=== PATIENT | female | born 1985 | race Caucasian/White ===

== ENCOUNTER 2016-03-13 19:57 | Emergency (ER) | payer SELFPAY ==
[~2016-03-13] VITALS: Ht 162.6 cm; Wt 66.0 kg
[2016-03-13 21:15] VITALS: Ht 162.6 cm; Wt 66.0 kg
[2016-03-13] MEDS ORDERED: IBUP-1542 PO (21:31)
[2016-03-13] MEDS ORDERED: HYDR-906 PO (21:32)
--- NOTE | 2016-03-13 21:37 | ERD ---
ER Documentation Chief Complaint Date/Time DATE: 03/13/16 TIME: 21:34 Chief Complaint left breast pain x 4 days HPI 30-year-old female presents here in emergency department for complaint of left breast pain started 4 days ago. Patient feels a mass in the left breast area. Patient described the pain as throbbing pain, 6/10 scale, now better or worse with anything. Patient did not have any trauma and affected area. Patient denies any nipple discharge. Patient denies any fever or chills patient denies any redness or swelling. Patient did not take any medications for pain. ROS All systems reviewed and are negative except as per history of present illness. Medications Home Meds Active Scripts Hydrocodone/Acetaminophen (Holmes 5-325 Tablet) 1 Each Tablet, 1 TAB PO Q6H Y for SEVERE PAIN LEVEL 7-10, #20 TAB Prov:HIRA FRAUSTO METAPHYSICIAN 03/13/16 Ibuprofen* (Motrin*) 600 Mg Tab, 600 MG PO Q6H Y for PAIN AND OR ELEVATED TEMP, #30 TAB Prov:HIRA FRAUSTO METAPHYSICIAN 03/13/16 Allergies Allergies: Coded Allergies: No Known Drug Allergies (Verified Allergy, Unknown, 03/13/16) PMhx/Soc Medical and Surgical Hx: pt denies Medical Hx, pt denies Surgical Hx FmHx Family History: No coronary disease, No diabetes, No other Physical Exam Vitals Vital Signs Date Time Temp Pulse Resp B/P Pulse Ox O2 Delivery O2 Flow Rate FiO2 03/13/16 21:15 98.5 81 20 122/65 99 Physical Exam GENERAL: The patient is well developed and appropriate for usual state of health, in no apparent distress. CHEST: Clear to auscultation bilaterally. There are no rales, wheezes or rhonchi. Noted left breast tenderness, noted 2 cm diameter palpable mass surrounding the nipple area, no deformity noted, no redness noted, no nipple discharge noted. Noted right breast is normal, no palpable mass, nontender on palpation. No redness noted. No fluctuance noted. HEART: Regular rate and rhythm. No murmurs, clicks, rubs or gallops. No S3 or S4. ABDOMEN: Soft, nontender and nondistended. Good bowel sounds. No rebound or guarding. No gross peritonitis. No gross organomegaly or masses. No Addison sign or McBurney point tenderness. BACK: No midline or flank tenderness. EXTREMITIES: Equal pulses bilaterally. There is no peripheral clubbing, cyanosis or edema. No focal swelling or erythema. Full range of motion. Grossly neurovascularly intact. NEURO: Alert and oriented. Cranial nerves 2-12 intact. Motor strength in all 4 extremities with 5/5 strength. Sensation grossly intact. Normal speech and gait. SKIN: There is no apparent rash or petechia. The skin is warm and dry. HEMATOLOGIC AND LYMPHATIC: There is no evidence of excessive bruising or lymphedema. No gross cervical, axillary, or inguinal lymphadenopathy. Procedures/MDM Medical decision making: Patient's left breast pain is nonspecific at this time , possibly contusion, possible musculoskeletal pain, is accompanying her mass but nonspecific at this time, patient was advised to see gynecology specialist/ breast specialist for possible mammogram or ultrasound for further evaluation of the left breast. At this time, no symptoms of any infection, symptoms of mastitis. No symptoms of any abscess. Patient was given ibuprofen for mild to moderate pain, Holmes for severe pain, is advised to apply ice on affected area, follow-up and see primary care doctor possibly be referred to gynecology specialist/breast specialist for further evaluation of symptoms. Departure Diagnosis: Primary Impression: Breast pain Condition: Stable Patient Instructions: Breast Self-Exam (BSE), Breast Mass, Uncertain Cause Referrals: CUSTOM STUDIO COORDIN[place] [address] [address] [place], [place] [id number] OFFICE FAX DR.ABUSLEME [facility] [address] [place] [place] [id number] [facility] [address] [place] [place] [phone] [address] [facility] [address] [facility] [address] [place] [id number] [address] [address] [place], [place] [phone] [facility] [address] [place], [place] [address] [address] [facility] [id number] - MARTINA MARTINEZ [address], [facility] [address] [address] FONSECA, JOSÉ [address] [facility]. [address], [facility] [address] [address] ALTMAN, FARID [address] [place], [place] [id number] [facility] () Usted se gabriel hecho un examen mdico de control que le indica que no est en darlene condicin que requiera tratamiento urgente en el Departamento de Emergencia. Un estudio ms profundo y el tratamiento de martinez condicin pueden esperar sin ningn riesgo hasta que usted sea atendida/o en el consultorio de martinez mdico o darlene cl ty. Es responsabilidad suya arreglar darlene curt para el seguimiento del neda. MANEJO DE CONDICIONES NO URGENTES EN EL FUTURO 1) Si usted tiene un mdico de atencin primaria: Usted debera llamar a martinez mdico de atencin primaria antes de venir al departamento de emergencia. Despus de las horas de consultorio, martinez doctor o martinez asociado/a est disponible por telfono. El mdico o enfermero de juliette en el servicio telefnico puede asesorarle por bethel medio para atender el problema, o neda contrario se puede programar darlene curt. 2) Si usted no tiene un mdico de atencin primaria: Llame al mdico o clnica de referencia que aparece abajo ramya las horas de consultorio para hacer darlene curt para que le vean. CLINICAS: [facility] [phone] [facility] [phone] [facility] [phone] [facility] [phone] [facility] [phone] 68[address] [facility]. [phone] [facility] () Usted se gabriel hecho un examen mdico de control que le indica que no est en darlene condicin que requiera tratamiento urgente en el Departamento de Emergencia. Un estudio ms profundo y el tratamiento de martinez condicin pueden esperar sin ningn riesgo hasta que usted sea atendida/o en el consultorio de martinez mdico o darlene cl ty. Es responsabilidad suya arreglar darlene curt para el seguimiento del neda. MANEJO DE CONDICIONES NO URGENTES EN EL FUTURO 1) Si usted tiene un mdico de atencin primaria: Usted debera llamar a martinez mdico de atencin primaria antes de venir al departamento de emergencia. Despus de las horas de consultorio, martinez doctor o martinez asociado/a est disponible por telfono. El mdico o enfermero de juliette en el servicio telefnico puede asesorarle por bethel medio para atender el problema, o neda contrario se puede programar darlene curt. 2) Si usted no tiene un mdico de atencin primaria: Llame al mdico o condado institucions de referencia que aparece abajo ramya las horas de consultorio para hacer darlene crut para que le vean. SI USTED NO PUEDE PAGAR PARA RENARD UN MEDICO puede ir a: [facility] [address] [place] [address] [facility] [address] [place] [address] [facility] [address] [place] [id number] [facility] [address] [place], [place] [phone] HIRA FRAUSTO NP Mar 13, 2016 21:37
== END 2016-03-13 21:34 | disposition home or self-care (01) ==
LOC: E/R 19:57
DX: N64.4 Mastodynia (principal)
CPT/HCPCS: 99283